=== PATIENT | female | born 1960 | race Caucasian/White ===

== ENCOUNTER 2016-12-05 23:35 | Emergency (ER) | payer OTHER ==
[~2016-12-05] VITALS: Ht 161.3 cm; Wt 67.1 kg
--- NOTE | 2016-12-05 23:42 | ED MVC/FALL/TRAUMA COMPLAINT ---
History of Present Illness General Chief Complaint: Shoulder Injury Stated Complaint: BIBA, FALL, L SHOULDER PAIN Source: patient Exam Limitations: no limitations Vital Signs & Intake/Output Vital Signs & Intake/Output Vital Signs Date Time Temp Pulse Resp B/P Pulse O2 O2 Flow FiO2 Ox Delivery Rate 12/06 0202 97.5 77 18 110/67 98 Room Air 12/05 2342 97.3 62 18 153/76 98 Room Air ED Intake and Output 12/06 0000 12/05 1200 Intake Total 0 Output Total Balance 0 Intake, Oral 0 Patient 148 lb Weight Allergies Coded Allergies: codeine (HEADACHE 12/06/16) Reconcile Medications Desvenlafaxine Succinate (Pristiq ER) 100 MG TAB.ER.24H 1 TAB PO DAILY DEPRESSION (Reported) Gabapentin 300 MG CAPSULE 2 CAP PO QHS SLEEP HELP (Reported) Ibuprofen 800 MG TABLET 1 TAB PO TID PRN PAIN Oxycodone HCl/Acetaminophen (Percocet 5-325 MG Tablet) 5 MG-325 MG TABLET 1 TAB PO 4XDP PRN PAIN TEN...[id number] Triage Nurses Notes Reviewed? yes Onset: Abrupt Duration: minute(s): Timing: single episode today Severity: moderate Injuries/Fall Location: upper extremity Method of Injury: fall Loss of Consciousness: no loss of consciousness Modifying Factors: Worsens With: movement. Associated Symptoms: left shoulder pain HPI: 56 yo woman in prior good health, presents after a fall with left shoulder pain. She notes, "I was sitting on the toilet in the middle of the night and fell asleep... I fell forward and landed on my left shoulder." She notes pain with movement. She notes no other injury. No head injury. No loss of consciousness. She is otherwise well. Past History Travel History Traveled to [place] past 21 day No Medical History Any Pertinent Medical History? see below for history Musculoskeletal: left clavicle fx Surgical History Surgical History: non-contributory Family History Hx Contributory? No Review of Systems Review of Systems Constitutional: Reports: no symptoms. Eyes: Reports: no symptoms. Ears, Nose, Throat, Mouth: Reports: no symptoms. Respiratory: Reports: no symptoms. Cardiovascular: Reports: no symptoms. Gastrointestinal/Abdominal: Reports: no symptoms. Genitourinary: Reports: no symptoms. Musculoskeletal: Reports: no symptoms. Skin: Reports: no symptoms. Neurological/Psychological: Reports: no symptoms. All Other Systems: Reviewed and Negative Physical Exam Physical Exam General Appearance: well developed/nourished, mild distress Head: atraumatic Eyes: Bilateral: normal appearance. Ears, Nose, Throat, Mouth: moist mucous membrane Neck: normal inspection, supple, full range of motion Respiratory: normal breath sounds Cardiovascular: regular rate/rhythm Gastrointestinal: normal bowel sounds, soft, non-tender Back: normal inspection Extremities: left shoulder girdle with diffuse tenderness to palpation. focal tenderness along distal clavicle. Core Measures ACS in differential dx? No Severe Sepsis Present: No Septic Shock Present: No Progress Differential Diagnosis: ext injury Plan of Care: Orders Procedure Date/time Status XRY-SHOULDER COMPLETE-LEFT 12/05 5207 Active Diagnostic Imaging: Viewed by Me: Radiology Read. Discussed w/RAD: Radiology Read. Radiology Impression: left shoulder... distal clavicle fx. Departure Departure Disposition: HOME OR SELF CARE Condition: Stable Clinical Impression Primary Impression: Clavicle fracture Departure Forms: Customer Survey General Discharge Information Prescriptions: Current Visit Scripts Ibuprofen 1 TAB PO TID PRN PAIN #60 TAB Oxycodone HCl/Acetaminophen (Percocet 5-325 MG Tablet) 1 TAB PO 4XDP PRN PAIN #10 TAB TEN...[id number] Comments sling placed by RN on left shoulder... pt will follow up with ortho on thursday
[2016-12-05] MEDS ORDERED: GABAPENTIN300 M2 PO (23:59)
[2016-12-05] MEDS ORDERED: PRISTIQ ER100 MG PO (23:59)
--- NOTE | 2016-12-06 01:36 | RADIOLOGY REPORT ---
EXAMINATION: XR SHOULDER, LEFT CLINICAL INFORMATION: Left shoulder pain after fall COMPARISON: None. TECHNIQUE: 3 views of the left shoulder. FINDINGS: There is a displaced fracture of the mid to distal left clavicle. Glenohumeral alignment is anatomic. The acromioclavicular joint is maintained. IMPRESSION: Displaced mid to distal left clavicular fracture.
[2016-12-06] MEDS ORDERED: PERCOCET 5-3251 EACH PO (03:16)
[2016-12-06] MEDS ORDERED: IBUPROFEN800 M1 PO (03:16)
[2016-12-06 03:42] VITALS: BP 115/66
== END 2016-12-06 03:44 ==
LOC: ERH 23:35
DX: S42.002A Fracture of unspecified part of left clavicle, initial encounter for closed fracture (principal); W18.11XA Fall from or off toilet without subsequent striking against object, initial encounter
CPT/HCPCS: 73030-LT; 96372; J1885

== ENCOUNTER 2017-02-05 20:45 | Emergency (ER) | payer OTHER ==
[~2017-02-05] VITALS: Ht 160 cm; Wt 70.3 kg
[~2017-02-05 20:45] MED LIST: GABAPENTIN300 M2 PO; IBUPROFEN800 M1 PO; PERCOCET 5-3251 EACH PO; PRISTIQ ER100 MG PO
--- NOTE | 2017-02-05 21:44 | ED GENERAL ADULT ---
History of Present Illness General Chief Complaint: Upper Extremity Problem Stated Complaint: PT IS HAVING PAIN IN THE LEFT SHOULDER BLADE Source: patient Exam Limitations: no limitations Vital Signs & Intake/Output Vital Signs & Intake/Output Vital Signs Date Time Temp Pulse Resp B/P Pulse O2 O2 Flow FiO2 Ox Delivery Rate 02/05 2253 95.6 55 20 145/74 98 Room Air 02/05 2058 98.0 64 20 156/96 99 Room Air Allergies Coded Allergies: codeine (HEADACHE 12/06/16) Reconcile Medications Baclofen 10 MG TABLET 1 TAB PO TIDPRN PRN muscle spasm/strain Desvenlafaxine Succinate (Pristiq ER) 100 MG TAB.ER.24H 1 TAB PO DAILY DEPRESSION (Reported) Gabapentin 300 MG CAPSULE 2 CAP PO QHS SLEEP HELP (Reported) Ibuprofen 800 MG TABLET 1 TAB PO TID PRN PAIN Ibuprofen 800 MG TABLET 1 TAB PO Q6PRN PRN pain Oxycodone HCl/Acetaminophen (Percocet 5-325 MG Tablet) 5 MG-325 MG TABLET 1 TAB PO 4XDP PRN PAIN TEN...[id number] Triage Note: PT TO ED C/P PAIN IN LEFT SHOULDER BLADE THAT WRAPS TO LEFT SIDE FOR 3 DAYS. WORSE SINCE 3 PM, AMND EVEN MORE WORSE AFTER EATING DINNER AT 1730. STATES LOTS OF FLATUS AFTER DINNER. RECWENTLY STOPPED USING A SLING R/T LEFT CLAVICLE FX. DENIES N/V. PAIN WORSE WITH MOVEMENT. WORSE WITH DEEP BREATHES Triage Nurses Notes Reviewed? yes Onset: Gradual Duration: hour(s): (3) Timing: recent history Injury Environment: home Severity: moderate Severity Numbers: 8 Modifying Factors: Improves With: immobilization. Worsens With: movement. HPI: Patient is a 56-year-old female resenting to the emergency department with chief complaint of left scapular pain that started suddenly a few hours prior to arrival. She reports that she recently had a left clavicle fracture and has been following up with orthopedics and they report that it has not been healing up well. She was driving when she got the sudden onset of pain. She reports that the pain was slightly different than what she has been experiencing with her clavicle pain. Pain was located in the left scapula. Pain is worse with movement. Denies any shortness of breath. She reports the pain radiates down the left arm at times. No numbness or tingling. She tried taking one of her pain pills which did not help. Denies any large semi-swelling. Pain is moderate. Denies any coughing. No new trauma. (HEIDI ANTONIO) Past History Travel History Traveled to [place] past 21 day No Medical History Any Pertinent Medical History? see below for history Musculoskeletal: left clavicle fx Psychiatric: anxiety, depression, insomnia Surgical History Surgical History: non-contributory Psychosocial History What is your primary language Upper Sorbian Tobacco Use: Never used ETOH Use: occasional use Illicit Drug Use: denies illicit drug use Family History Hx Contributory? No (HEIDI ANTONIO) Review of Systems Review of Systems Constitutional: Reports: no symptoms. Comments Review of systems: See HPI, All other systems negative. Constitutional, no chills fever or weight loss HEENT: No visual changes no sore throat no congestion Cardiovascular: No chest pain ,palpitation , orthopnea or ankle swelling Skin, no jaundice no rashes Respiratory: No dyspnea cough sputum or hemoptysis GI: No nausea no vomiting : No dysuria No hematuria Muscle skeletal: no back pain, no neck pain, Neurologic: No numbness no confusion, no headache Psych: No increased stress anxiety or depression,. Heme/endocrine: No bruising no bleeding no polyuria or polydipsia Immunology: No splenectomy or history of AIDS (HEIDI ANTONIO) Physical Exam Physical Exam General Appearance: well developed/nourished, no apparent distress, alert, awake , comfortable Comments: Well-developed well-nourished person in no acute distress HEENT: Pupils equally round and reactive to light and accommodation. Nose is atraumatic. Neck: Supple, no lymphadenopathy, normal range of motion without pain or tenderness Back: Tenderness to palpation over the left scapula. Also tender to palpation on the left thoracic and cervical paraspinal muscles. Pain with right shoulder adduction. Cardiovascular: Regular rate and rhythms no murmurs rubs or gallops, normal JVP Respiratory: Chest nontender. No respiratory distress.breath sounds clear to auscultation bilaterally Extremity: No edema, no calf tenderness to palpation, normal and equal pulses. Pain to palpation over the left clavicle. Neuro: Alert oriented x3, motor sensory normal Skin: No appreciable rash on exposed skin, skin is warm and dry. Psych: Mood and affect is normal, memory and judgment is normal. Core Measures ACS in differential dx? Yes CVA/TIA Diagnosis: No Severe Sepsis Present: No Septic Shock Present: No (HEIDI ANTONIO) Progress Differential Diagnoses I considered the following diagnoses in my evaluation of the patient: Muscle strain, radicular pain, PE, ACS, muscle spasm, Plan of Care: Orders Procedure Date/time Status Telemetry/Computer Game Tester 02/05 2143 Active TROPONIN LEVEL 02/05 2143 Complete D-DIMER 02/05 2143 Complete COMPREHENSIVE METABOLIC PANEL 02/05 2143 Complete CBC WITHOUT DIFFERENTIAL 02/05 2143 Complete EKG 02/05 2143 Active Laboratory Tests 02/05/172203: Anion Gap 11, Estimated GFR > 60, BUN/Creatinine Ratio 21.1, Glucose 102 H, Calcium 10.1, Total Bilirubin 0.5, AST 29, ALT 36, Alkaline Phosphatase 63, Troponin I < 0.01, Total Protein 7.3, Albumin 4.6, Globulin 2.7, Albumin/ Globulin Ratio 1.7, D-Dimer < 200, CBC w Diff NO MAN DIFF REQ, RBC 4.56, MCV 85.7, MCH 28.6, RDW 14.3, MPV 9.5, Gran % 57.8, Lymphocytes % 31.9, Monocytes % 5.0, Eosinophils % 4.8, Basophils % 0.5, Absolute Granulocytes 4.3, Absolute Lymphocytes 2.4, Absolute Monocytes 0.4, Absolute Eosinophils 0.4, Absolute Basophils 0, PUBS MCHC 33.4 Diagnostic Imaging: Viewed by Me: Radiology Read. Discussed w/RAD: Radiology Read. Radiology Impression: STILL SHOWING DISPLACED CLAVICLE FX Initial ED EKG: sinus 53 bpm, consider anteroseptal infarct Prior EKG: unchanged (no previous) Hand-Off Endorsed To: LIDIA JO MD Endorsed Time: 2299 Pending: labs Comments: Arrival patient medicated with Toradol. We will evaluate labs, EKG. Likely orthopedic in nature but cannot exclude cardiac or lung pathology. (HEIDI ANTONIO) Departure Departure Disposition: HOME OR SELF CARE Condition: Stable Referrals: JOSE ENRIQUE MEYRE,SANGEETHA Jaramillo (PCP/Family) Departure Forms: Customer Survey General Discharge Information (HEIDI ANTONIO) Departure Time of Disposition: 2300 Clinical Impression Primary Impression: Muscle strain of scapular region Qualifiers: Encounter type: initial encounter Laterality: left Qualified Code: S46.912A - Strain of unspecified muscle, fascia and tendon at shoulder and upper arm level, left arm, initial encounter Prescriptions: Current Visit Scripts Ibuprofen 1 TAB PO Q6PRN PRN pain #50 TAB Baclofen 1 TAB PO TIDPRN PRN muscle spasm/strain #30 TAB PA/DIVIDEND DEPOSIT VOUCHER CLERK Co-Sign Statement Statement: ED Attending supervision documentation- x I saw and evaluated the patient. I have also reviewed all the pertinent lab results and diagnostic results. I agree with the findings and the plan of care as documented in the PA's/DIVIDEND DEPOSIT VOUCHER CLERK's documentation. [] I have reviewed the ED Record and agree with the PA's/DIVIDEND DEPOSIT VOUCHER CLERK's documentation. [] Additions or exceptions (if any) to the PAs/DIVIDEND DEPOSIT VOUCHER CLERK's note and plan are summarized below: [] (DEYSI MEYER,LIDIA) Critical Care Note Critical Care Note Critical Care Time: non-applicable (HEIDI ANTONIO)
--- NOTE | 2017-02-05 22:20 | RADIOLOGY REPORT ---
EXAMINATION: XR CHEST CLINICAL INFORMATION: Left scapular pain. Evaluate for cardiomegaly. COMPARISON: None. TECHNIQUE: PA and lateral views of the chest were obtained. FINDINGS: PA and lateral views of the chest demonstrate an acute displaced fracture of the left clavicle with approximately 2.2 cm of overlap of the proximal and distal clavicular fracture fragment. There is also approximately 1.8 cm of inferior displacement of the distal clavicular fracture fragment relative to the proximal clavicular fracture fragment. The left acromioclavicular joint is intact. The lungs are well-expanded and clear without focal airspace consolidation. No pleural effusions or pneumothoraces are identified. Cardiomediastinal contours are within normal limits. Soft tissues are unremarkable. IMPRESSION: No acute pulmonary process. Acute displaced fracture of the left clavicle, as described above, with approximately 1.8 cm of inferior displacement of the distal left clavicular fragment relative to the proximal clavicular fragment. There is also approximately 2.2 cm of cortical overlap of the fracture fragments. Consider correlation with contrast-enhanced chest CT to exclude underlying vascular injury to the left subclavian vessels.
[2017-02-05 22:35] LABS: ABSOLUTE BASOPHIL COUNT 0 /CUMM (0.0-0.2); ABSOLUTE EOSINOPHIL COUNT 0.4 /CUMM (0.0-0.7); ABSOLUTE GRANULOCYTE CT 4.3 /CUMM (1.4-6.5); ABSOLUTE LYMPH COUNT 2.4 /CUMM (1.2-3.4); ABSOLUTE MONOCYTE COUNT 0.4 /CUMM (0.10-0.60); BASOPHIL % 0.5 % (0.0-2.0); EOSINOPHIL % 4.8 % (0-5); GRANULOCYTE % 57.8 % (42.2-75.2); HEMATOCRIT 39.1 % (37-47); MEAN CORPUSCULAR HGB 28.6 PG (27.0-31.0); MEAN CORPUSCULAR HGB CONC 33.4 G/DL (33.0-37.0); MEAN CORPUSCULAR VOLUME 85.7 FL (81.0-99.0); MEAN PLATELET VOLUME 9.5 FL (7.4-10.4); PLATELET COUNT 259 /CUMM (130-400); RBC DISTRIBUTION WIDTH 14.3 % (11.5-14.5); RED BLOOD CELL CT 4.56 /CUMM (4.20-5.40); WHITE BLOOD CELL COUNT 7.4 /CUMM (4.8-10.8)
[2017-02-05 22:53] VITALS: BP 145/74
[2017-02-05] MEDS ORDERED: IBUPROFEN800 M1 PO (23:08)
[2017-02-05] MEDS ORDERED: BACLOFEN10 M1 PO (23:08)
== END 2017-02-05 23:15 ==
LOC: ERH 20:45
PROVIDERS: Physician Assistant
DX: S46.912A Strain of unspecified muscle, fascia and tendon at shoulder and upper arm level, left arm, initial encounter (principal); X58.XXXA Exposure to other specified factors, initial encounter; Y93.89 Activity, other specified; Y92.9 Unspecified place or not applicable
CPT/HCPCS: 93005; 93010; 96372; J1885